=== PATIENT | female | born 1990 | race Caucasian/White ===

== ENCOUNTER 2022-01-01 15:57 | Inpatient (IN) ==
[2022-01-01] MEDS ORDERED: Lactated Ringers 1000 ml BAG 1,000 ML IV ONE (17:41)
[2022-01-01] MEDS ORDERED: ceFOXitin 2 GM IVPREMIX 2 GM/50 ML BAG IVPB ONE (17:41)
[2022-01-01] MEDS ORDERED: Buffered Lidocaine 1% SYRIN 1 ml INTRADERM ONE (17:41)
[2022-01-01 18:09] LABS: Urine Benzodiazepine Screen None Detected (None Detect); Urine Opiates Screen Presumptive Positive (None Detect)
[2022-01-01 20:33] LABS: ABS Eosinophils 0.1 10^3/ul (0-0.6); ABS Lymphocytes 2.7 10^3/ul (1.0-4.8); ABS Monocytes 0.7 10^3/ul (0-0.8); ABS Neutrophils 6.8 10^3/ul (1.5-7.7); Hematocrit 37 % (35-47); Hemoglobin 12.3 g/dL (12.0-16.0); Lymphocyte % 26.3 %; Mean Corpuscular HGB Conc 34 g/dL (31-36); Mean Corpuscular Hemoglobin 31 pg (27-31); Mean Corpuscular Volume 93 fL (80-97); Mean Platelet Volume 8.7 fL (7.4-10.4); Nucleated Red Blood Cells % 0.1; Platelet Count 213 10^3/uL (150-450); Red Blood Count 3.92 10^6 /uL (3.70-4.87); Red Cell Distribution Width 14 % (10-15); White Blood Count 10.4 10^3/uL (3.5-10.8)
[2022-01-01 21:55] LABS: Hepatitis B Surface Antigen Nonreactive (Nonreactive)
[2022-01-01 21:57] LABS: HIV 4th Generation Nonreactive (Nonreactive)
[2022-01-01 23:59] LABS: Hepatitis C Antibody Reactive (Negative)
[2022-01-02] MEDS ORDERED: Sodium Citrate/Citric Acid LIQ 15 ML UDC ONE (05:51)
[2022-01-02] MEDS: Lactated Ringers 1000 ml BAG 1,000 ML IV SCH ×2 (06:22→07:05)
[2022-01-02] MEDS ORDERED: Naloxone 0.4 mg VIAL 0.4 mg/ml 1 ml VIAL IV PRN (07:33)
[2022-01-02 07:59] LABS: Activated Partial Thrombo Time 32.3 seconds (26.0-38.0); INR 0.91 (0.89-1.11)
[2022-01-02 08:22] LABS: Albumin 2.8 g/dL (3.2-5.2); Calcium 8.1 mg/dL (8.6-10.3); Globulin 2.7 g/dL (2-4); Potassium 4.3 mmol/L (3.5-5.0); Total Bilirubin 0.4 mg/dL (0.2-1.0); Total Protein 5.5 g/dL (6.4-8.9); eGFR CKD-EPI 142.8 (>60)
[2022-01-02] MEDS ORDERED: Morphine PF AMP (0.5MG/ML) 5 MG/10 ML AMP ONE (08:26)
[2022-01-02] MEDS ORDERED: Oxytocin 10 UNITS/ML 1 ML VIAL ONE (09:03)
[2022-01-02] MEDS ORDERED: Acetaminophen IV 1 GM/100ML 1,000 MG/100 ML BAG IV PRN (09:08)
[2022-01-02] MEDS ORDERED: Ondansetron 4 mg VIAL 2 MG/ML 2 ml VIAL IV PRN (09:08)
[2022-01-02] MEDS ORDERED: Naloxone 0.4 mg VIAL 0.4 mg/ml 1 ml VIAL IV PUSH PRN (09:08)
[2022-01-02] MEDS ORDERED: Metoclopramide 5 MG/ML VIAL (10 mg) IV PRN (09:08)
[2022-01-02 09:52] LABS: Urine Appearance Clear; Urine Bilirubin Negative (Negative); Urine Blood Negative (Negative); Urine Color Straw; Urine Glucose Negative (Negative); Urine Ketones Negative (Negative); Urine Nitrite Negative (Negative); Urine Protein Negative (Negative); Urine Specific Gravity 1.009 (1.002-1.030); Urine Urobilinogen Negative (Negative)
[2022-01-02] MEDS ORDERED: Dibucaine 1% OINT 28.35 GM TUBE PR PRN (09:54)
[2022-01-02] MEDS ORDERED: Witch Hazel PAD JAR TOPICAL PRN (09:54)
[2022-01-02] MEDS ORDERED: Glycerin ADULT 2.4 gm SUPP PR PRN (09:54)
[2022-01-02] MEDS ORDERED: Lactated Ringers 1000 ml BAG 1,000 ML IV SCH (10:00)
[2022-01-02] MEDS ORDERED: Oxytocin in LR 20,000 MILLI.UNIT/1,000 ML BAG IV SCH (10:00)
[2022-01-02] MEDS ORDERED: Nalbuphine 10 MG/ML 1 ML VIAL IV PRN (13:50)
[2022-01-02] MEDS: Nalbuphine 10 MG/ML 1 ML VIAL IV PRN ×2 (14:54→22:23)
[2022-01-02] MEDS: Nicotine PATCH 7 MG/24 HR PATCH TRANSDERM SCH (16:12)
[2022-01-03 06:36] LABS: ABS Basophils 0.1 10^3/ul (0-0.2); ABS Eosinophils 0.1 10^3/ul (0-0.6); ABS Lymphocytes 2.1 10^3/ul (1.0-4.8); ABS Monocytes 0.6 10^3/ul (0-0.8); Eosinophil % 1.1 %; Hematocrit 32 % (35-47); Hemoglobin 10.8 g/dL (12.0-16.0); Lymphocyte % 23.6 %; Mean Corpuscular HGB Conc 34 g/dL (31-36); Mean Corpuscular Hemoglobin 32 pg (27-31); Mean Corpuscular Volume 94 fL (80-97); Platelet Count 181 10^3/uL (150-450); Red Blood Count 3.39 10^6 /uL (3.70-4.87); Red Cell Distribution Width 14 % (10-15); White Blood Count 8.8 10^3/uL (3.5-10.8)
[2022-01-03] MEDS: Nicotine PATCH 7 MG/24 HR PATCH TRANSDERM SCH (09:24)
[2022-01-03 13:06] LABS: Lead,Venous, B < 1.0 mcg/dL (<5.0); Submitting Laboratory Phone 6072744474
[2022-01-04 09:30] VITALS: BP 145/89
[2022-01-04] MEDS: Nicotine PATCH 7 MG/24 HR PATCH TRANSDERM SCH (12:42)
== END 2022-01-04 18:13 | disposition home or self-care (01) | DRG 540 ==
LOC: MCHOBOUT 15:57 → MCHOB 17:29
PROVIDERS: ADMIT Obstetrics & Gynecology; ATTEND Obstetrics & Gynecology